=== PATIENT | female | born 1975 ===

== ENCOUNTER 2019-07-25 21:21 | Emergency (ER) | payer SELFPAY ==
[2019-07-25] MEDS ORDERED: Dexamethasone 4 mg/ml Vial ONE (22:47)
== END 2019-07-25 22:55 | disposition home or self-care (01) ==
LOC: ERS 21:21
DX: J06.9 Acute upper respiratory infection, unspecified (principal); F17.200 Nicotine dependence, unspecified, uncomplicated
CPT/HCPCS: 87804; 99283; J1100